=== PATIENT | male | born 1990 | race Caucasian/White ===

== ENCOUNTER → 2018-07-31 16:09 | Outpatient (CLI) | payer BC, SELFPAY ==
[2018-07-31 17:55] LABS: Thyroid Stim Hormone (TSH) 0.84 uIU/mL (0.358-3.74)
== END ==
PROVIDERS: Family Provider Family Medicine; PCP Family Medicine; Visit Provider Nurse Practitioner Adult Health
DX: R00.2 Palpitations (principal)
CPT/HCPCS: 36415; 84443

== ENCOUNTER 2019-01-26 08:24 | Day surgery (SDC) | payer OTHER, SELFPAY ==
[2019-01-10 09:15] VITALS: BMI 24.4
--- NOTE | 2019-01-12 02:30 | HP_ITS ---
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 Is patient in pain?: No Allergies No Known Allergies Allergy (Unverified 01/10/19 09:15) Medications apple cider vinegar 600 mg capsule mg PO cap 01/10/19 [History Confirmed 01/10/19] multivitamin tablet 1 tab PO DAILY 01/10/19 [History Confirmed 01/10/19] omega-3 fatty acids 1,000 mg capsule 1,000 mg PO DAILY 01/10/19 [History Confirmed 01/10/19] omeprazole 20 mg capsule,delayed release 20 mg PO DAILY 01/10/19 [History Confirmed 01/10/19] PFSH Medical History GERD (gastroesophageal reflux disease) (Acute) Rectal bleeding (Acute) Family History Mother Cancer renal Social History (Updated 01/12/19 @ 14:30 by Lazarus Limon MD) Smokeless tobacco user: chewing tobacco alcohol intake: never HPI HPI HPI: HAYDE BURCIAGA, is a 28 M who presents to the office today for HPI HPI Surgical H&P: Yes HPI: HAYDE BURCIAGA, is a 28 M who presents to the office today for rectal bleeding. Patient reports that he is just started a PPI as he has been having belching and indigestion. He also has anxiety and is at risk for peptic ulcer disease. He is also noted blood in his stool. ROS General General: No weight change or fatigue Musc Musculoskeletal: Yes back problems Cardio Cardiovascular: No murmur, pacemaker, heart disease, atrial fibrillation, high blood pressure, heart attack, heart stent, palpitations, shortness of breat with exertion or chest pain Psych Psychiatric: Yes anxiety; no depression Resp Respiratory: No shortness of breath, No sleep apnea, No cough, No COPD, No asthma, No emphysema, No wheezing Gastro Gastrointestinal: No abdominal pain, No nausea or vomiting, No diarrhea, Yes constipation, Yes blood in stool, Yes acid reflux, No hemorrhoids, No ulcers, No gallbladder problem, No black,tarry stools Kirk Hematologic: No blood thinners Exam Const General: cooperative Orientation: alert, oriented x3 Resp Effort & Inspection: normal respiratory effort Auscultation: clear to auscultation bilaterally Cardio Rate: regular rate Rhythm: regular rhythm Heart Sounds: no murmurs GI Inspection: non-distended Palpation: soft, nontender Assessment & Plan Problems 1. Rectal bleed K62.5 2. Gastroesophageal reflux disease, esophagitis presence not specified K21.9 Plan The patient is having rectal bleeding. He says this is been going on and mixed into his stool not just around his stool. Patient reports he is recently started on a PPI and the bleeding is stopped. He is at risk for peptic ulcer disease with anxiety and indigestion. I recommend EGD and colonoscopy to evaluate the GI bleed. I explained endoscopy in detail to the patient. I explained the risks including but not limited to stroke or heart attack with anesthesia, perforation of the GI tract, bleeding, infection. I explained that any of these could necessitate further emergency surgery. The patient understands and all questions were answered sufficiently. The patient wishes to proceed with procedure. Lazarus Limon MD Pager: [facility] [address] [place] [address], [address] [place] [address] Office: Orders Orders: Colonoscopy 01/10/19 K62.5 EGD 01/10/19 K21.9 Coding Level of Care Code Off vis,new,level 3 Diagnoses Rectal bleed K62.5 Gastroesophageal reflux disease, esophagitis presence not specified K21.9 ??Esophagitis presence: esophagitis presence not specified 01/12/19 1430 <Electronically signed by Lazarus garcia MD> Date _ Lazarus Limon MD I have re-examined the patient. There are no clinical changes since date of exam.
--- NOTE | 2019-01-26 | GASB_PTH ---
PATIENT: HAYDE BURCIAGA LOC: EN U#:[id number] AGE/SX: 28/M ROOM: RE01/26/[address]: Dr. Lazarus Limon MD : 1990 BED: DIS: 01/26/2019 SPEC #: [id number] RECD: 01/26/19 14:12 STATUS: BHAVYA KATHLEEN #: [id number] SHERI: 01/26/19 00:[address]: Lazarus Limon DEPT: SURGICAL PATHOLOGY RECD BY: Lalito Bond ENTERED: 01/26/19 14:12 SP TYPE: Gastric Bx OTHR DR: Dr. Rodri Ang MD Tissues: Gastric mucous membrane Procedures: Surgery Specimen Level IV HEADER OPERATION: Colonoscopy, EGD ([facility] – [place] PRE-OP DIAGNOSIS: Rectal bleeding, GERD, esophagitis TISSUE SUBMITTED: Antrum biopsy for histo and H. pylori MICROSCOPIC DIAGNOSIS Antrum, biopsy: Mild gastritis. See microscopic description and comment. SJ:zain 01/29/19 COMMENT The results of immunohistochemistry for Helicobacter pylori will be reported separately ([id number]). MICROSCOPIC DESCRIPTION Slides are reviewed. The specimen shows fragments of gastric mucosa with chronic inflammatory cell infiltrates in the lamina propria consisting of lymphocytes and plasma cells, consistent with mild chronic gastritis. GROSS DESCRIPTION Received in fixative is one container labeled with the patient's name and designated antrum biopsy. The specimen consists of two irregular fragments of light downing soft tissue that in aggregate measure 0.5 x 0.3 x 0.1 cm. The specimen is totally submitted in one cassette. / ISHAAN:zain 01/26/19 TC:3 CPT: 08801
[2019-01-26 08:30] VITALS: BP 108/84; PULSE 105; RESP 16; TEMP 36.6; O2SAT 100; BMI 22.9
[2019-01-26] MEDS: Lactated Ringers 1,000 ML 75 ML IV (09:13)
--- NOTE | 2019-01-26 09:30 | IMM_PTH ---
PATIENT: HAYDE BURCIAGA LOC: EN U#:[id number] AGE/SX: 28/M ROOM: RE01/26/[address]: Dr. Lazarus Limon MD : 1990 BED: DIS: 01/26/2019 SPEC #: [id number] RECD: 01/26/19 14:36 STATUS: BHAVYA KATHLEEN #: [id number] SHERI: 01/26/19 09:[address]: Lazarus Limon DEPT: IMMUNOHISTOCHEMISTRY RECD BY: Nirali Duke ENTERED: 01/26/19 14:37 SP TYPE: IMMUNO OTHR DR: Dr. Rodri Ang MD Tissues: Stomach, NOS Procedures: H Pylori (initial) PHYSICIAN & INSTITUTION [place] [address] SPECIMEN INFORMATION: Tissue Source: Antrum biopsy Clinical Info: Rectal bleeding, GERD, esophagitis Specimen Number: [id number] CPT code: 92360 METHODOLOGY: Deparaffinized sections of prefer/formalin-fixed tissue or PAP/DQ stained slides are incubated with monoclonal/polyclonal antibodies/oligonucleotide probes. Localization is made via biotin free immunoperoxidase method. Appropriate controls are performed and reacted as expected. Results on target cell population are indicated in the following table: RESULTS: ANTIBODY / CLONE RESULT H Pylori (polyclonal) negative These tests were developed and their performance characteristics determined by [facility]. They may not have been cleared or approved by the U.S. Food and Drug Administration. The FDA has determined that such clearance or approval is not necessary. INTERPRETATION: Antrum biopsy: Negative for Helicobacter pylori organisms. SJ:zain 01/29/19
[2019-01-26 09:54] VITALS: BP 108/84; BP 115/67; PULSE 101; RESP 16; TEMP 36.6; O2SAT 100
--- NOTE | 2019-01-26 09:56 | OP.EGD_ITS ---
Patient Name: Jesús Traylor Procedure Date: 01/26/2019 9:22 AM Date of : 1990 Age: 28 Procedure: Upper GI endoscopy Indications: Heartburn Providers: Lazarus Limon MD Referring MD: Rodri Ang MD Medicines: Monitored Anesthesia Care Patient Profile: This is a 28 year old male. Refer to note in patient chart for documentation of history and physical. Complications: No immediate complications. Procedure: Pre-Anesthesia Assessment: - Prior to the procedure, a History and Physical was performed, and patient medications and allergies were reviewed. The patient's tolerance of previous anesthesia was also reviewed. The risks and benefits of the procedure and the sedation options and risks were discussed with the patient. All questions were answered, and informed consent was obtained. Prior Anticoagulants: The patient has taken no previous anticoagulant or antiplatelet agents. After reviewing the risks and benefits, the patient was deemed in satisfactory condition to undergo the procedure. After obtaining informed consent, the endoscope was passed under direct vision. Throughout the procedure, the patient's blood pressure, pulse, and oxygen saturations were monitored continuously. The gastroscope was introduced through the mouth, and advanced to the second part of duodenum. The upper GI endoscopy was accomplished without difficulty. The patient tolerated the procedure well. Scope In: 9:31:58 AM Scope Out: 9:34:55 AM Total Procedure Duration Time 0 hours 2 minutes 57 seconds Findings: A small hiatal hernia was present. The esophagus was normal. The stomach was normal. The examined duodenum was normal. Biopsies were taken with a cold forceps in the gastric antrum for Helicobacter pylori testing. Impression: - Small hiatal hernia. - Normal esophagus. - Normal stomach. - Normal examined duodenum. - Biopsies were taken with a cold forceps for Helicobacter pylori testing. Recommendation: - Await pathology results. - Discharge patient to home. - Resume previous diet. - Continue present medications. - Return to my office PRN. Procedure Code(s): --- Professional --- 55264, Esophagogastroduodenoscopy, flexible, transoral; with biopsy, single or multiple Diagnosis Code(s): --- Professional --- K44.9, Diaphragmatic hernia without obstruction or gangrene R12, Heartburn CPT copyright 2017 [employer]. All rights reserved. The codes documented in this report are preliminary and upon director financial systems review may be revised to meet current compliance requirements. Lazarus Limon MD 01/26/2019 9:56:11 AM This report has been signed electronically. Number of Addenda: 0 Note Initiated On: 01/26/2019 9:22 AM
--- NOTE | 2019-01-26 09:57 | OP.COLON_ITS ---
Patient Name: Jesús Traylor Procedure Date: 01/26/2019 9:35 AM Date of : 1990 Age: 28 Procedure: Colonoscopy Indications: Rectal bleeding Providers: Lazarus Limon MD Referring MD: Rodri Ang MD Medicines: Monitored Anesthesia Care Patient Profile: This is a 28 year old male. Refer to note in patient chart for documentation of history and physical. Last Colonoscopy: none. The patient's first colonoscopy is today. Complications: No immediate complications. Estimated blood loss: None. Procedure: Pre-Anesthesia Assessment: - Prior to the procedure, a History and Physical was performed, and patient medications and allergies were reviewed. The patient's tolerance of previous anesthesia was also reviewed. The risks and benefits of the procedure and the sedation options and risks were discussed with the patient. All questions were answered, and informed consent was obtained. [Anticoagulant Agents] [Days Prior to Procedure]. [ASA Grade]. After reviewing the risks and benefits, the patient was deemed in satisfactory condition to undergo the procedure. After I obtained informed consent, the scope was passed under direct vision. Throughout the procedure, the patient's blood pressure, pulse, and oxygen saturations were monitored continuously. The colonoscope was introduced through the anus and advanced to the cecum, identified by appendiceal orifice and ileocecal valve. The colonoscopy was performed without difficulty. The patient tolerated the procedure well. The quality of the bowel preparation was good. Scope In: 9:37:09 AM Scope Withdrawal Time 0 hours 6 minutes 7 seconds Scope Out: 9:50:10 AM Total Procedure Duration Time 0 hours 13 minutes 1 second Findings: The entire examined colon appeared normal on direct and retroflexion views. Impression: - The entire examined colon is normal on direct and retroflexion views. - No specimens collected. Recommendation: - Discharge patient to home. - Resume previous diet. - Continue present medications. - Repeat colonoscopy at age 50 for screening purposes. Procedure Code(s): --- Professional --- 00096, Colonoscopy, flexible; diagnostic, including collection of specimen(s) by brushing or washing, when performed (separate procedure) Diagnosis Code(s): --- Professional --- K62.5, Hemorrhage of anus and rectum CPT copyright 2017 [employer] [place] [employer]. All rights reserved. The codes documented in this report are preliminary and upon planer tailer review may be revised to meet current compliance requirements. Lazarus Limon MD 01/26/2019 9:57:33 AM This report has been signed electronically. Number of Addenda: 0 Note Initiated On: 01/26/2019 9:35 AM
[2019-01-26 10:00] VITALS: BP 108/84; BP 121/69; PULSE 80; RESP 16; O2SAT 100
[2019-01-26 10:05] VITALS: BP 108/84; BP 125/66; PULSE 79; RESP 16; O2SAT 100
[2019-01-26 10:09] VITALS: BP 108/84; BP 126/79; PULSE 80; RESP 16; TEMP 36.6; O2SAT 100
[2019-01-26 10:32] VITALS: BP 108/84
== END 2019-01-26 10:42 | disposition home or self-care (01) ==
LOC: EN 08:24 → AC 08:25
PROVIDERS: Family Provider Family Medicine; PCP Family Medicine; Referring Provider Family Medicine; Visit Provider Surgery
PROC: 0DJD8ZZ Inspection of Lower Intestinal Tract, Via Natural or Artificial Opening Endoscopic (ICD-10-PCS; CPT 45378; principal; 2019-01-26 09:25)
DX: K29.70 Gastritis, unspecified, without bleeding (principal); K44.9 Diaphragmatic hernia without obstruction or gangrene; K21.9 Gastro-esophageal reflux disease without esophagitis; K62.5 Hemorrhage of anus and rectum; Z72.0 Tobacco use
CPT/HCPCS: 43239; 45378; 88305; 88342; J7120; J2405

== ENCOUNTER → 2022-06-10 | Outpatient (CLI) | payer OTHER, SELFPAY ==
--- NOTE | 2022-06-10 07:40 | ECHOD_ITS ---
Reason For Study: PALPITATIONS Procedure This was a 2D Doppler, Color Flow transthoracic echocardiogram. Exam performed in department. Left Ventricle Normal left ventricle. The left ventricular ejection fraction is 65 %. No evidence for diastolic dysfunction. Right Ventricle Normal right ventricle. Atria The left and right atria are normal. Mitral Valve The mitral valve is structurally normal. No prolapse or stenosis seen. Tricuspid Valve Trivial tricuspid valve insufficiency. Unable to estimate RV systolic pressure due to insufficient tricuspid regurgitant envelope. Aortic Valve Normal aortic valve. Pulmonic Valve Trivial pulmonic valve insufficiency. Great Vessels Normal sized aortic root. Pericardium/Pleural No pericardial effusion. MMode/2D Measurements & Calculations LVIDd: 5.3 cm IVSd: 0.77 cm Ao root diam: 2.7 cm LVIDs: 3.7 cm LVPWd: 0.77 cm RVDd: 3.0 cm FS: 30.6 % LAV(MOD-bp): 44.0 ml LVAd ap4: 33.8 cm2 SV(MOD-sp4): 59.0 ml LAV(MOD-bp) Indexed: 20.7 ml/m2 LVLd ap4: 10.1 cm LAV(MOD-sp2): 43.9 ml EDV(MOD-sp4): 92.7 ml LAV(MOD-sp4): 31.5 ml EDV(sp4-el): 95.8 ml LVAs ap4: 17.6 cm2 LVLs ap4: 7.9 cm ESV(MOD-sp4): 33.7 ml ESV(sp4-el): 33.2 ml EF(MOD-sp4): 63.7 % EF(sp4-el): 65.3 % SV(sp4-el): 62.5 ml LA A4 area: 15.8 cm2 RA A4 area: 18.4 cm2 Time Measurements MV dec time: 0.16 sec Doppler Measurements & Calculations MV E max yovani: 69.2 cm/sec Lat Peak E' Yovani: 20.7 cm/sec Med Peak E' Yovani: 13.0 cm/sec MV A max yovani: 42.8 cm/sec E/E' lat: 3.3 E/E' med: 5.3 MV E/A: 1.6 MV V2 max: 69.3 cm/sec Ao V2 max: 132.4 cm/sec MV max P.9 mmHg MV dec slope: 510.2 cm/sec2 Ao max P.0 mmHg MV V2 mean: 51.4 cm/sec Ao V2 mean: 95.6 cm/sec MV mean P.1 mmHg Ao mean P.1 mmHg MV V2 VTI: 19.6 cm Ao V2 VTI: 26.1 cm AV (velocity ratio): 0.93 LV V1 max: 107.7 cm/sec PA V2 max: 137.7 cm/sec LV V1 max P.6 mmHg PA V2 mean: 105.5 cm/sec LV V1 mean P.0 mmHg LV V1 mean: 52.7 cm/sec LV V1 VTI: 24.3 cm ECHO/Echo Complete Interpretation Summary The left ventricular ejection fraction is 65 %. Ordering Physician: Louise Saleh Referring Physician: Louise Saleh Performed By: Gloria Appiah RCS
== END | disposition home or self-care (01) ==
LOC: CVS 07:40
PROVIDERS: PCP Family Medicine; Referring Provider Family Medicine; Visit Provider Family Medicine
DX: R00.2 Palpitations (principal)
CPT/HCPCS: 93306

== ENCOUNTER → 2022-07-16 | Outpatient (CLI) | payer OTHER, SELFPAY | END | disposition home or self-care (01) | LOC: SL 08:02 | PROVIDERS: PCP Family Medicine; Referring Provider Nurse Practitioner Acute Care; Visit Provider Nurse Practitioner Acute Care | DX: G47.10 Hypersomnia, unspecified (principal) | CPT/HCPCS: 95806 ==

== ENCOUNTER → 2023-01-20 | Outpatient (CLI) | payer OTHER, SELFPAY ==
--- NOTE | 2023-01-20 13:28 | VAS_PTH ---
PATIENT: HAYDE [facility]URCIAGA [facility] U[id number] AGE/SX: 32/M ROOM: RE01/20/[address]: Dr. Lazarus Limon MD : 1990 BED: DIS: 01/20/2023 SPEC #: [id number] RECD: 01/20/23 14:01 STATUS: BHAVYA REMatti #: [id number] SHERI: 01/20/23 13:[address]: Lazarus Limon DEPT: SURGICAL PATHOLOGY RECD BY: Morelia Arellano ENTERED: 01/21/23 10:13 SP TYPE: VAS OTHR DR: Louise Saleh DO Tissues: A - Vas deferens, NOS B - Vas deferens, NOS Procedures: Surgery Specimen Level II HEADER OPERATION: Bilateral partial vasectomy PRE-OP DIAGNOSIS: Sterilization TISSUE SUBMITTED: A - Right vas deferens, B - Left vas deferens MICROSCOPIC DIAGNOSIS A. Right vas deferens, segmental vasectomy: Complete cross-section of vas deferens with no pathologic change. B. Left vas deferens, segmental vasectomy: Complete cross-section of vas deferens with no pathologic change. AM:zain 01/25/2023 MICROSCOPIC DESCRIPTION Slides are reviewed. GROSS DESCRIPTION A - Received is one container designated right vas deferens. The specimen consists of a cylindrical segment of pink-downing soft tissue measuring 0.6 cm in length and 0.2 cm in maximum diameter. The specimen is serially sectioned and totally submitted in one cassette. B - Received is one container designated left vas deferens. The specimen consists of a cylindrical segment of pink-downing soft tissue measuring 0.6 cm in length and 0.2 cm in maximum diameter. The specimen is serially sectioned and totally submitted in one cassette. / AM:zain 01/21/2023 TC:4 CPT: 78848 x2
== END | disposition home or self-care (01) ==
LOC: LABSPEC 14:04
PROVIDERS: PCP Family Medicine; Referring Provider Surgery; Visit Provider Surgery
DX: Z30.2 Encounter for sterilization (principal)
CPT/HCPCS: 88302

== ENCOUNTER → 2023-03-03 | Outpatient (CLI) | payer OTHER, SELFPAY ==
--- NOTE | 2023-03-03 | CYSPIN_PTH ---
PATHOLOGY RESULTS PATIENT: HAYDE BURCIAGA [facility] U[facility][id number] AGE/SX: 32/M ROOM: RE03/03/[address]: Dr. Lazaurs Limon MD : 1990 BED: DIS: 03/03/2023 SPEC #: [id number] RECD: 03/03/23 10:30 STATUS: BHAVYA REMatti #: [id number] SHERI: 03/03/23 00:[address]: Lazarus Limon DEPT: CYTOLOGY RECD BY: Lalito Bond ENTERED: 03/03/23 10:32 SP TYPE: CYSPIN FL OTHR DR: Louise Saleh DO Tissues: Cytologic material, NOS Procedures: Pap Stain (control) Special Stain Group II Cytospin Fluid HEADER OPERATION: Post vasectomy PRE-OP DIAGNOSIS: Vasectomy status TISSUE SUBMITTED: Semen fluid for analysis DIAGNOSIS CYTOLOGY Semen fluid for analysis (cytospin): Acute inflammation. No spermatozoa identified. AM:zain 03/03/2023 CYTOLOGY STUDY Slides are reviewed. CYTOLOGY GROSS Received is 1 ml of cloudy white fluid labeled with the patient's name and and designated per the requisition as semen. Submitted for cytology preparation. / zain 03/03/2023 TC:2 CPT: 55545
[2023-03-03 14:06] LABS: Pathologist Review SEE PATH REPORT
[2023-03-03 14:07] LABS: Semen Analysis Post Vas PATH REVIEW ONLY
== END | disposition home or self-care (01) ==
PROVIDERS: PCP Family Medicine; Referring Provider Surgery; Visit Provider Surgery
DX: Z30.2 Encounter for sterilization (principal)
CPT/HCPCS: 88108; 88313; 89321

== ENCOUNTER → 2023-03-25 | Outpatient (CLI) | payer OTHER, SELFPAY ==
--- NOTE | 2023-03-25 08:38 | CYSPIN_PTH ---
PATHOLOGY RESULTS PATIENT: [facility]CIAGA [facility] U[facility][id number] AGE/SX: 32/M ROOM: RE03/25/[address]: Dr. Lazarus Limon MD : 1990 BED: DIS: 03/25/2023 SPEC #: [id number] RECD: 03/25/23 10:28 STATUS: BHAVYA KATHLEEN #: [id number] SHERI: 03/25/23 08:[address]: aLzarus Limon DEPT: CYTOLOGY RECD BY: Morelia Arellano ENTERED: 03/25/23 10:31 SP TYPE: CYSPIN FL OTHR DR: Louise Saleh DO Tissues: Cytologic material, NOS Procedures: Pap Stain (control) Special Stain Group II Cytospin Fluid HEADER OPERATION: Post vasectomy PRE-OP DIAGNOSIS: Vasectomy status TISSUE SUBMITTED: Semen fluid for analysis DIAGNOSIS CYTOLOGY Semen analysis (cytospin): Sperms are not seen. /jason 03/25/23 CYTOLOGY STUDY Slides are reviewed. CYTOLOGY GROSS Received is less than .5 ml of opaque cloudy fluid labeled with the patient's name and and designated per the requisition as semen. Submitted for cytology preparation. / 03/25/23 TC:5 CPT: 84829
[2023-03-25 09:12] LABS: Cytology, Semen SEE PATHOLOGY REPORT
== END | disposition home or self-care (01) ==
PROVIDERS: PCP Family Medicine; Referring Provider Surgery; Visit Provider Surgery
DX: Z30.2 Encounter for sterilization (principal)
CPT/HCPCS: 88108; 88313

== ENCOUNTER → 2024-01-18 | Outpatient (CLI) | payer OTHER, SELFPAY ==
[2024-01-18 17:59] LABS: ALB/GLOB Ratio 1.5 RATIO (0.9-2.4); AST(SGOT) 18 U/L (15-37); Alanine Aminotransfer ALT/SGPT 58 U/L (16-61); Albumin, Serum 4.7 g/dL (3.2-5.0); Alkaline Phosphatase 56 U/L (45-117); Anion Gap 5 (5-15); BUN 15 mg/dL (7-18); BUN/Creat Ratio 14.7 RATIO (10-20); Calcium,Total 9.6 mg/dL (8.5-10.1); Chloride 106 mmol/L (98-107); Creatinine, Serum 1.02 mg/dL (0.70-1.30); EST Glomerular Filtration Rate 89 mL/min (>60); Est Glom Filt Rate - Afr Amer 108 mL/min (>60); Globulin 3.1 g/dL (2.2-4.2); Glucose 93 mg/dL (74-106); Potassium 3.7 mmol/L (3.5-5.1); Protein, Total 7.8 g/dL (6.4-8.2); Sodium Level 139 mmol/L (136-145); T4 Free Direct 0.98 ng/dL (0.76-1.46)
== END | disposition home or self-care (01) ==
LOC: LAB 16:26
PROVIDERS: PCP Family Medicine; Referring Provider Family Medicine; Visit Provider Family Medicine
DX: F41.0 Panic disorder [episodic paroxysmal anxiety] (principal)
CPT/HCPCS: 36415; 80053; 84439; 84443

== ENCOUNTER → 2024-03-08 | Outpatient (CLI) | payer OTHER, SELFPAY ==
[2024-03-08 15:54] LABS: Absolute Lymphocyte Count 2.33 X10^3/uL (0.83-4.51); Absolute Neutrophil Count 5.9 X10^3/uL (2.0-7.7); Basophil# 0.05 X10^3/uL; Basophil% 0.6 % (0-1); Eosinophil# 0.06 X10^3/uL; Eosinophils% 0.7 % (0-5); Hematocrit 47.8 % (40-54); Hemoglobin 16.8 g/dL (13.0-16.5); Lymphocyte # 2.33 X10^3/ul (0.83-4.51); Mean Corp Hgb Conc 35.1 g/dL (32-36); Mean Corpuscular Hgb 28.8 pg (27.0-32.0); Mean Platelet Vol. 9.4 fl (6.2-12.0); Monocyte# 0.54 X10^3/uL; NRBC Flagged by Analyzer 0 % (0-5); Neutrophil # 5.93 X10^3/uL (2.7-7.7); Neutrophil % 66.3 % (47-70); Platelet Count 310 K/mm3 (150-450); RBC Distribution Width CV 12.9 % (11.6-14.6); RBC Distribution Width SD 37.7 fl (35.1-43.9); Red Blood Count 5.83 M/mm3 (4.6-6.2)
[2024-03-08 17:57] LABS: Vitamin B12 498 pg/mL (211-911); Vitamin D,25 Hydroxy 21.2 ng/mL
== END | disposition home or self-care (01) ==
LOC: LAB 14:47
PROVIDERS: PCP Family Medicine; Referring Provider Family Medicine; Visit Provider Family Medicine
DX: E55.9 Vitamin D deficiency, unspecified (principal)
CPT/HCPCS: 36415; 82306; 82607; 85025

== ENCOUNTER → 2024-06-11 | Outpatient (CLI) | payer OTHER, SELFPAY ==
[2024-06-11 10:19] LABS: Vitamin D,25 Hydroxy 39.7 ng/mL (30-100)
== END | disposition home or self-care (01) ==
LOC: LAB 08:09
PROVIDERS: PCP Family Medicine; Referring Provider Family Medicine; Visit Provider Family Medicine
DX: F41.1 Generalized anxiety disorder (principal)
CPT/HCPCS: 81291; 82306; 82533; 84402; 84403